=== PATIENT | male | born 1945 | race Caucasian/White ===

== ENCOUNTER → 2017-01-12 | Outpatient (CLI) | payer BC, OTHER ==
[~2017-01-12] MED LIST: ADVIN10/60 INH; ASPI-435 PO; ASTNS NAE; CALC600T9 PO; CINN1CAP2 PO; DOCU-94 PO; FESO8TAB PO; FOLIC ACID PO; GARL400T4 PO; LYSI100010 PO; MULT-506 PO; OMEG10007 PO; OXYC-106 PO; SIMV20TA2 PO
== END | disposition home or self-care (01) ==
LOC: C.LAB 13:02
PROVIDERS: ATTEND Urology
DX: N39.0 Urinary tract infection, site not specified (principal)

== ENCOUNTER → 2017-02-09 | Outpatient (CLI) | payer BC, OTHER ==
[2017-02-09 10:51] LABS: BLOOD UREA NITROGEN 19 mg/dl (7-18); CREATININE 0.99 mg/dl (0.60-1.40)
[2017-02-09 10:55] LABS: PROSTATE SPECIFIC ANTIGEN < 0.010 ng/ml (0.000-4.000)
--- NOTE | 2017-02-16 12:02 | CODING QUERY MEDICAL NECESSITY ---
SUPPORTING DIAGNOSIS NEEDED Dr. Alejandra, A supporting diagnosis is required for the test/procedure performed on this patient in order for us to be reimbursed by the patient's insurance. Please provide a supporting diagnosis for the following test/procedure listed below next to the test name along with your signature. *If there is no additional diagnosis for this patient that would support the following test/procedure please document that below next to the test/procedure. Test(s)/Procedure(s) that require a supporting diagnosis: * [id number] PSA DIAGNOSIS: DATE OF SERVICE: 02/09/17 Provider Signature: Date: Thank you Jung Thornton [facility] Information Management Once completed, please kindly fax back to [phone] For questions please call [phone]
== END | disposition home or self-care (01) ==
LOC: C.LAB 09:27
PROVIDERS: ATTEND Urology
DX: R30.0 Dysuria (principal); N39.3 Stress incontinence (female) (male); C61 Malignant neoplasm of prostate

== ENCOUNTER → 2017-03-24 | Outpatient (CLI) | payer BC, OTHER ==
[2017-03-24 10:33] LABS: BLOOD UREA NITROGEN 20 mg/dl (7-18); BUN/CREATININE RATIO 21.5 (10-20); CREATININE 0.92 mg/dl (0.60-1.40)
== END | disposition home or self-care (01) ==
LOC: C.LAB 08:37
PROVIDERS: ATTEND Urology
DX: R31.9 Hematuria, unspecified (principal)

== ENCOUNTER → 2017-04-05 | Outpatient (CLI) | payer BC, OTHER ==
[~2017-04-05] MED LIST changes: +OPTIRAY 320 IV PRN
--- NOTE | 2017-04-05 11:12 | DIAGNOSTIC IMAGING REPORT ---
ABD/PELVIS COMBO CLINICAL HISTORY: 71 years-old Male presenting with hematuria, history of prostate cancer. TECHNIQUE: Multidetector CT of the abdomen and pelvis was performed before and after the administration of intravenous contrast. IV contrast: 119 mL of Optiray 320. A dose lowering technique was used consistent with the principles of ALARA (as low as reasonably achievable). COMPARISON: 07/09/2014. CT DOSE (mGy.cm): The estimated cumulative dose is 917.32 mGy.cm. FINDINGS: Mycologist topogram: Numerous surgical clips in the pelvis likely relate to prostatectomy. Lung bases: Fat-containing right Bochdalek hernia. Minimal dependent atelectasis. Coronary artery calcification. Normal heart size. No pericardial or pleural effusion. Liver: Normal morphology. No liver lesion. Patent hepatic vasculature. Biliary: No intrahepatic or extrahepatic biliary ductal dilatation. Normal gallbladder. Pancreas: Mild parenchymal atrophy. Spleen: Normal. Adrenal glands: Normal. Kidneys and ureters: No nephrolithiasis. Normal excretion. No hydronephrosis. Normal ureters. Gastrointestinal tract: Sigmoid diverticulosis with apparent mild wall thickening, likely chronic diverticular disease. No pericolonic inflammatory change. Mild stool burden throughout normal caliber colon. Normal appendix. Peritoneal cavity: No free fluid or intraperitoneal gas. Bladder: Suggestion of polypoid thickening of the left posterolateral wall (series 5 image 418), although the bladder is under distended and incompletely evaluated. Pelvic organs: Postsurgical changes of prostatectomy. No abnormal soft tissue at the ureteral anastomosis. Vasculature: Atherosclerosis of the normal caliber abdominal aorta. IVC patent. Lymph nodes: No enlarged lymph nodes in the abdomen or pelvis. Abdominal wall: Diastases of the abdominis rectus. Small fat-containing inguinal hernias. Musculoskeletal: Degenerative changes of the spine. Sclerosis along the left lateral aspect of L2 is stable from prior. No new sclerotic lesion. IMPRESSION: 1. Suggestion of polypoid thickening of the left posterolateral wall of the bladder. The examination is limited by under distention of the bladder. However, this appearance raises concern for bladder wall mass. Further evaluation with CT cystogram versus direct visualization on cystoscopy could be considered. 2. Postsurgical changes of prostatectomy without evidence of residual or recurrent metastatic disease in the abdomen or pelvis. 3. Stable sclerotic lesion in the L2 vertebral body. The report will be called/faxed according to standard departmental protocol. Electronically signed by: Frank Kent M.D. 04/05/2017 11:10 AM Dictated Date/Time: 04/05/2017 11:01 AM
== END | disposition home or self-care (01) ==
LOC: C.CTS 10:31
PROVIDERS: ATTEND Urology
DX: R31.9 Hematuria, unspecified (principal)

== ENCOUNTER → 2017-06-30 | Outpatient (CLI) | payer BC, OTHER ==
[~2017-06-30] MED LIST changes: -OPTIRAY 320 IV PRN
== END | disposition home or self-care (01) ==
LOC: C.LAB 17:11
PROVIDERS: ATTEND Urology
DX: N39.0 Urinary tract infection, site not specified (principal); N52.9 Male erectile dysfunction, unspecified

== ENCOUNTER → 2017-07-23 | Outpatient (CLI) | payer BC, OTHER | END | disposition home or self-care (01) | LOC: C.LAB 12:09 | PROVIDERS: ATTEND Urology | DX: N52.9 Male erectile dysfunction, unspecified (principal); N39.0 Urinary tract infection, site not specified ==

== ENCOUNTER → 2017-09-21 | Outpatient (CLI) | payer BC, OTHER | END | disposition home or self-care (01) | LOC: C.LAB 14:57 | PROVIDERS: ATTEND Nurse Practitioner Adult Health | DX: R30.0 Dysuria (principal) ==

== ENCOUNTER → 2017-10-21 | Outpatient (CLI) | payer BC, OTHER | END | disposition home or self-care (01) | LOC: C.LAB 15:56 | PROVIDERS: ATTEND Nurse Practitioner Adult Health | DX: R31.9 Hematuria, unspecified (principal) ==

== ENCOUNTER → 2018-02-01 | Outpatient (CLI) | payer BC, OTHER | END | disposition home or self-care (01) | LOC: C.RDSM 16:55 | PROVIDERS: ATTEND Physical Medicine & Rehabilitation Sports Medicine | DX: M25.561 Pain in right knee (principal) ==

== ENCOUNTER 2020-03-04 05:39 | Observation (INO) ==
--- NOTE | 2020-02-15 12:07 | PAT Medication Instructions ---
Medication Instructions Date of Service February 15, 2020 Home Medications Medication Instructions Recorded vardenafil 10 mg disintegrating 10 mg PO DAILY PRN #10 tab 04/27/19 tablet sulfamethoxazole 800 1 tab PO BID 10 Days #20 tab 01/25/20 mg-trimethoprim 160 mg tablet vardenafil 10 mg disintegrating tablet 10 mg PO DAILY PRN albuterol sulfate 90 mcg/actuation aerosol inhaler 2 puffs INH Q6H PRN omeprazole 20 mg capsule,delayed release 20 mg PO BID oxybutynin chloride 5 mg tablet 5 mg PO BID tolterodine 2 mg tablet 2 mg PO BID ascorbic acid (vitamin C) [Vitamin C] 500 mg PO QAM atorvastatin 20 mg PO QAM azelastine 1 spray INTRANASAL DAILY calcium citrate 250 mg PO QAM fluticasone propion-salmeterol [Advair HFA] 2 puff INHALATION DAILY folic acid 1 mg PO QAM garlic 1,000 mg PO QAM lysine [L-Lysine] 500 mg PO WK multivitamin 1 tab PO QAM omega 9-okc-uod-fish oil [[place]-3] 1 cap PO QAM vitamin B complex 1 tab PO QAM chlorpheniramine-phenylephrine tans ER 9 mg-25 mg tablet 1 tab PO .Take 1 tablet daily ibuprofen 600 mg tablet 600 mg PO .TAKE TABLET PRN PRN sulfamethoxazole 800 mg-trimethoprim 160 mg tablet 1 tab PO BID 10 Days Continue as directed sulfamethoxazole 800 mg-trimethoprim 160 mg tablet 1 tab PO BID 10 Days ASK your surgeon for instructions ibuprofen 600 mg tablet 600 mg PO .TAKE TABLET PRN PRN STOP taking 2 weeks before surgery (or as soon as possible if surgery is within 2 weeks) garlic 1,000 mg PO QAM lysine [L-Lysine] 500 mg PO WK omega 0-avh-ljh-fish oil [[place]-3] 1 cap PO QAM DO NOT take the morning of surgery vardenafil 10 mg disintegrating tablet 10 mg PO DAILY PRN oxybutynin chloride 5 mg tablet 5 mg PO BID tolterodine 2 mg tablet 2 mg PO BID ascorbic acid (vitamin C) [Vitamin C] 500 mg PO QAM azelastine 1 spray INTRANASAL DAILY calcium citrate 250 mg PO QAM folic acid 1 mg PO QAM multivitamin 1 tab PO QAM vitamin B complex 1 tab PO QAM chlorpheniramine-phenylephrine tans ER 9 mg-25 mg tablet 1 tab PO .Take 1 tablet daily Take morning of surgery With a small sip of water, OTHERWISE NOTHING TO EAT OR DRINK AFTER MIDNIGHT: albuterol sulfate 90 mcg/actuation aerosol inhaler 2 puffs INH Q6H PRN (use if needed; please bring with you to hospital day of surgery if possible) omeprazole 20 mg capsule,delayed release 20 mg PO BID fluticasone propion-salmeterol [Advair HFA] 2 puff INHALATION DAILY Take evening before surgery vardenafil 10 mg disintegrating tablet 10 mg PO DAILY PRN (if needed) albuterol sulfate 90 mcg/actuation aerosol inhaler 2 puffs INH Q6H PRN (if needed) omeprazole 20 mg capsule,delayed release 20 mg PO BID oxybutynin chloride 5 mg tablet 5 mg PO BID tolterodine 2 mg tablet 2 mg PO BID Other Notes If you have any questions please call us at [phone] or [phone] or [phone] or [phone]
--- NOTE | 2020-02-19 14:43 | PAT Medication Instructions ---
Medication Instructions Date of Service February 19, 2020 Home Medications Medication Instructions Recorded vardenafil 10 mg disintegrating 10 mg PO DAILY PRN #10 tab 04/27/19 tablet sulfamethoxazole 800 1 tab PO BID 10 Days #20 tab 01/24/ mg-trimethoprim 160 mg tablet vardenafil 10 mg disintegrating tablet 10 mg PO DAILY PRN albuterol sulfate 90 mcg/actuation aerosol inhaler 2 puffs INH Q6H PRN omeprazole 20 mg capsule,delayed release 20 mg PO BID oxybutynin chloride 5 mg tablet 5 mg PO BID tolterodine 2 mg tablet 2 mg PO BID ascorbic acid (vitamin C) [Vitamin C] 500 mg PO QAM atorvastatin 20 mg PO QAM azelastine 1 spray INTRANASAL DAILY calcium citrate 250 mg PO QAM fluticasone propion-salmeterol [Advair HFA] 2 puff INHALATION DAILY folic acid 1 mg PO QAM garlic 1,000 mg PO QAM lysine [L-Lysine] 500 mg PO WK multivitamin 1 tab PO QAM omega 6-pwq-riq-fish oil [[place]-3] 1 cap PO QAM vitamin B complex 1 tab PO QAM chlorpheniramine-phenylephrine tans ER 9 mg-25 mg tablet 1 tab PO .Take 1 tablet daily ibuprofen 600 mg tablet 600 mg PO .TAKE TABLET PRN sulfamethoxazole 800 mg-trimethoprim 160 mg tablet 1 tab PO BID Continue as directed sulfamethoxazole 800 mg-trimethoprim 160 mg tablet 1 tab PO BID ASK your surgeon for instructions ibuprofen 600 mg tablet 600 mg PO .TAKE TABLET PRN STOP taking 2 weeks before surgery omega 1-hwj-oxd-fish oil [[place]-3] 1 cap PO QAM garlic 1,000 mg PO QAM lysine [L-Lysine] 500 mg PO WK STOP taking 24 hours before surgery vardenafil 10 mg disintegrating tablet 10 mg PO DAILY PRN DO NOT take the morning of surgery vitamin B complex 1 tab PO QAM chlorpheniramine-phenylephrine tans ER 9 mg-25 mg tablet 1 tab PO .Take 1 tablet daily multivitamin 1 tab PO QAM calcium citrate 250 mg PO QAM folic acid 1 mg PO QAM ascorbic acid (vitamin C) [Vitamin C] 500 mg PO QAM oxybutynin chloride 5 mg tablet 5 mg PO BID tolterodine 2 mg tablet 2 mg PO BID Take morning of surgery With a small sip of water, OTHERWISE NOTHING TO EAT OR DRINK AFTER MIDNIGHT: fluticasone propion-salmeterol [Advair HFA] 2 puff INHALATION DAILY atorvastatin 20 mg PO QAM azelastine 1 spray INTRANASAL DAILY albuterol sulfate 90 mcg/actuation aerosol inhaler 2 puffs INH Q6H PRN (use if needed; please bring with you to hospital day of surgery if possible) omeprazole 20 mg capsule,delayed release 20 mg PO BID Take evening before surgery oxybutynin chloride 5 mg tablet 5 mg PO BID tolterodine 2 mg tablet 2 mg PO BID albuterol sulfate 90 mcg/actuation aerosol inhaler 2 puffs INH Q6H PRN (if needed) omeprazole 20 mg capsule,delayed release 20 mg PO BID Other Notes If you have any questions please call us at [phone] or [phone] or [phone] or [phone]
--- NOTE | 2020-02-20 09:30 | Anesthesiology Consultation ---
Date of Service February 20, 2020 Assessment & Plan (1) Encounter for pre-operative examination: Chart Review Chart Review: Acceptable Risk for Surgery (COVID TESTING THREE DAYS PRIOR TO SURGERY ) and Patient seen in Pre Admission Testing Per PAT appt 02/20/20- patient states surgeon office would be contacting him about Covid testing three days prior to surgery. Educated patient on importance of quarantine and social distancing both for himself and household members Teaching & Discussion Pre-Anesthesia Teaching/Discussion Notes: Instructed NPO after midnight before surgery,except medications with 15 cc of water. Medication instructions provided according to the PAT guidelines. History Surgery Operation Date: 03/04/20 09:50 Proposed Procedures p Right Knee Arthroplasty Uni Compartment versus - Hal Weiss MD s Right Total Knee Arthroplasty - Hal Weiss MD Height/Weight Height: 5 ft 8 in Weight: 85.2 kg Allergies Allergy/AdvReac Type Severity Reaction Status Date / Time grass pollen-perennial rye, Allergy Mild ITCHY EYES Verified 02/14/20 12:43 standar STUFFY NOSE pollen extracts Allergy Mild ITCHY Verified 02/14/20 12:43 EYES,STUFFY NOSE No Known Drug Allergies Allergy Unknown NONE Verified 02/14/20 12:43 cat dander Allergy Verified 02/14/20 12:43 dog dander Allergy Verified 02/14/20 12:43 Medications Home Medications Medication Instructions Recorded Confirmed Last Taken vardenafil 10 mg disintegrating 10 mg PO DAILY PRN #10 tab 04/27/19 02/14/20 Unknown tablet albuterol sulfate 90 mcg/actuation 2 puffs INH Q6H PRN 09/21/19 02/14/20 Unknown aerosol inhaler omeprazole 20 mg capsule,delayed 20 mg PO BID 09/21/19 02/14/20 Unknown release oxybutynin chloride 5 mg tablet 5 mg PO BID 09/21/19 02/14/20 Unknown tolterodine 2 mg tablet 2 mg PO BID 09/21/19 02/14/20 Unknown ascorbic acid (vitamin C) [Vitamin 500 mg PO QAM 12/06/19 02/14/20 Unknown C] atorvastatin 20 mg PO QAM 12/06/19 02/14/20 Unknown azelastine 1 spray INTRANASAL DAILY 12/06/19 02/14/20 Unknown calcium citrate 250 mg PO QAM 12/06/19 02/14/20 Unknown fluticasone propion-salmeterol 2 puff INHALATION DAILY 12/06/19 02/14/20 Unknown [Advair HFA] folic acid 1 mg PO QAM 12/06/19 02/14/20 Unknown garlic 1,000 mg PO QAM 12/06/19 02/14/20 Unknown lysine [L-Lysine] 500 mg PO WK 12/06/19 02/14/20 Unknown multivitamin 1 tab PO QAM 12/06/19 02/14/20 Unknown omega 9-eug-kae-fish oil [[place]-3] 1 cap PO QAM 12/06/19 02/14/20 Unknown vitamin B complex 1 tab PO QAM 12/06/19 02/14/20 Unknown chlorpheniramine-phenylephrine 1 tab PO .Take 1 tablet daily 01/01/20 02/14/20 Unknown tans ER 9 mg-25 mg tablet ibuprofen 600 mg tablet 600 mg PO .TAKE TABLET PRN PRN 01/01/20 02/14/20 Unknown Past Medical History Medical History (Updated 02/20/20 @ 15:56 by Renetta Villela PA-C) Asthma HAS NOT USED RESCUE INHALER FOR A WHILE Deep vein thrombosis 2002 (S/P KNEE SURGERY)- ON BLOOD THINNERS X SIX MONTHS THEN D/CONCEPCIÓN -NO ISSUES SINCE Degenerative disc disease GERD (gastroesophageal reflux disease) WELL CONTROLED AND STABLE History of high cholesterol History of prostate cancer S/P PROSTATECTOMY Osteoarthritis Sleep apnea CPAP DEVICE- NON COMPLIANT X ONE YEAR SECONDARY TO 'S HEALTH ISSUES Exercise / Class Metabolic Activity II 4-5 Yardwork/Stairs/Walk up hill (ONE FLIGHT OF STAIRS- NO CHEST PAIN OR SOB) Past Family History Family History Other No significant medical problems Past Surgical History Surgical History History of anesthesia reaction DIFFICULTY BREATHING AFTER KNEE SURGERY (NOTHING WITH DIFFICULT AIRWAY)- NO REINTUBATION OR ICU STAY- NO ISSUES WITH OTHER SURGERIES History of arthroscopy LEFT/RT KNEE History of back surgery LUMBAR LAMINECTOMY (3 TOTAL SURGERIES) History of carpal tunnel release History of cataract surgery RT/LEFT History of colonoscopy History of tonsillectomy and adenoidectomy Hx of transurethral resection of prostate Hx of vasectomy Trigger finger X 6 Dobson teeth removed Past Anesthesia History No Hx of Anesthesia Complications (ONE EPISODE OF SOB POST OP- RESOLVED- NO OTHER ISSUES ) and No Family Hx of Anesthesia Complications History of PONV No Hx of PONV and No Hx of Motion Sickness Social History Smoking Status: Former smoker tobacco type: cigarettes Do You Dip or Chew Tobacco: No Smoking End Date: 1980 Hx Alcohol Use: Yes Alcohol type: beer alcohol intake frequency: a few times a month Hx Substance Use: No substance use type: does not use Review of Systems Did have blood transfusion s/p prostate surgery with own blood Patient denies chest pain, shortness of breath, dyspnea on exertion, cough, wheezing, palpitations. No hx of seizures, stroke, HI. Physical Exam Vital Signs VITALS BP 118/69 P 50 (denies dizziness or syncope) TEMP 98.0 SP02 95% RESP 16 Constitutional no acute distress ENMT Mouth: no TMJ clicking Thyromental Distance: > or= 3.5 Finger Breadths (4.0) Mallampati Class: III Permanent upper frontal bridge Missing molars Capped/crowned molars Neck neck extension not limited Respiratory normal respiratory effort; no respiratory distress Auscultation: lungs clear to auscultation bilaterally; no wheezes Cardiovascular Rate/Rhythm: regular rate and regular rhythm Heart Sounds: no murmur Vessels: no carotid bruit Heart sounds diminished throughout Musculoskeletal Spine: + pain with cervical ROM (mild and moderate ) Neurologic moves all extremities Psychiatric Orientation: alert Testing Laboratory Results 02/20/20 09:42 02/20/20 09:42 PT 10.5 Seconds (9.0-12.0) 02/20/20 09:42 INR 1.0 (0.9-1.1) 02/20/20 09:42 APTT 26.3 Seconds (21.0-31.0) 02/20/20 09:42 Blood Type A Positive 02/20/20 09:42 Antibody Screen NEGATIVE 02/20/20 09:42 Electrocardiogram Date: 02/20/20 SB with 1st degree AVB at 47 bpm- when compared to Jun 13, 2015 EKG per cardio- no sig change was found. Chest X-Ray Date: 02/20/20 Findings: + NAD
--- NOTE | 2020-02-20 10:07 | XRay Report ---
XR chest Pre-admission PA/Lat HISTORY: 74 years-old Male PAT preoperative exam. No acute chest complaints COMPARISON: Chest radiographs 09/21/2018 TECHNIQUE: PA and lateral views of the chest FINDINGS: Cardiomediastinal and hilar silhouettes are within normal limits. No pneumothorax, pleural effusion, airspace consolidation or overt pulmonary edema. Bones of the chest appear grossly intact. IMPRESSION: No acute process. ACT 112: Negative or not required by law. The above report was generated using voice recognition software. It may contain grammatical, syntax o r spelling errors. Electronically signed by: Jason Francois M.D. 02/20/2020 10:05 AM
[2020-02-20 10:38] LABS: Basophils # (auto) 0.03 K/uL (0-0.2); Basophils % (auto) 0.5 %; Eosinophils # (auto) 0.09 K/uL (0-0.5); Eosinophils % (auto) 1.6 %; Hemoglobin 14.6 g/dL (14.0-18.0); Immature Granulocytes # (auto) 0.01 K/uL (0.00-0.02); Immature Granulocytes % (auto) 0.2 %; Lymphocytes # (auto) 2.19 K/uL (1.2-3.4); Lymphocytes % (auto) 38.6 %; Mean Corpuscular Hemoglobin 31.9 pg (25-34); Mean Corpuscular Hgb Conc 33.2 g/dL (32-36); Mean Corpuscular Volume 96.1 fL (80-100); Mean Platelet Volume 10.4 fL (7.4-10.4); Monocytes # (auto) 0.63 K/uL (0.11-0.59); Monocytes % (auto) 11.1 %; Neutrophils # (auto) 2.72 K/uL (1.4-6.5); Platelet Count 188 K/uL (130-400); RDW Coefficient of Variation 13.8 % (11.5-14.5); RDW Standard Deviation 48.8 fL (36.4-46.3); Red Blood Count 4.58 M/uL (4.7-6.1); White Blood Count 5.67 K/uL (4.8-10.8)
[2020-02-20 10:47] LABS: BUN Creatinine Ratio 21.4 (10-20); Calcium 8.5 mg/dl (8.5-10.1); Creatinine Clr Calc Pharmacy 74.5 ml/min; Est GFR (African American) 95.2; Est GFR (Non-African American) 82.2
[2020-02-20 10:52] LABS: Partial Thromboplastin Ratio 0.9; Partial Thromboplastin Time 26.3 Seconds (21.0-31.0); Prothrombin Time 10.5 Seconds (9.0-12.0)
--- NOTE | 2020-02-20 16:59 | Electrocardiogram Report ---
Test Reason : Blood Pressure : / mmHG Vent. Rate : 047 BPM Atrial Rate : 047 BPM P-R Int : 234 ms QRS Dur : 082 ms QT Int : 436 ms P-R-T Axes : 038 037 018 degrees QTc Int : 385 ms Sinus bradycardia with 1st degree A-V block Otherwise normal ECG When compared with ECG of 13-JUN-2015 11:42, No significant change was found Confirmed by Robb Stubbs ([id number]) on 02/20/2020 4:59:13 PM Referred By: Hal Weiss Confirmed By:Robb Stubbs
--- NOTE | 2020-03-02 10:39 | History and Physical Report ---
DATE OF ADMISSION: 03/04/2020 CHIEF COMPLAINT: Persistent right medial knee pain, discomfort and swelling. HISTORY OF PRESENT ILLNESS: The patient is a 74-year-old gentleman who presents for repeat evaluation and treatment of his right knee. He has had a several year history of gradually increasing right knee pain and discomfort. He did have a history of a right knee arthroscopy done by Dr. Smith in the . It helped him for quite a while. He has been through extensive conservative treatment over the years by both Dr. Smith as well as myself. He has had steroid shots provided very minimal relief. Pain is localized mostly on the medial side of his knee. The more he walks, the more it hurts. It is affecting his quality of life. He would like to have his knee fixed if possible. Of note, the patient has a history of left knee ACL reconstruction which was done pretty well and relatively asymptomatic. PAST MEDICAL HISTORY: Past medical history significant for: 1. Asthma. 2. Sleep apnea with CPAP machine. 3. History of a DVT in the past with no known clotting disorder and no PE. 4. Gastroesophageal reflux disease. 5. Low back pain/sciatica. PAST SURGICAL HISTORY: Previous surgeries include: 1. Right knee arthroscopy done in the . 2. Left ACL reconstruction. 3. Prostate cancer surgery. 4. Back surgery x3. 5. Trigger fingers. ALLERGIES: TO PET HAIR AND POLLEN. No known drug allergies. CURRENT MEDICINES: Include: 1. Advair once a day. 2. Aspirin once a day. 3. Proventil inhaler as needed. 4. Atorvastatin 20 mg. 5. Oxybutynin 5 mg twice a day. 6. Tolterodine 2 mg twice a day. 7. Omeprazole 20 mg twice a day. 8. Nitrofurantoin as needed. 9. Ketoconazole cream. 10. Multivitamin. 11. Calcium. 12. Fish oil. 13. Garlic. 14. Vitamin D. SOCIAL HISTORY: male. He is 74. He is fairly active. Does not smoke. No significant alcohol intake. FAMILY HISTORY: Noncontributory. REVIEW OF SYSTEMS: Significant for DVT in the past. No history of PEs. No known clotting disorders. No chest pain or shortness of breath. No history of bleeding problems. PHYSICAL EXAMINATION: GENERAL: Reveals a healthy, pleasant, middle-aged male. Looks to be in good health. HEENT: Benign. NECK: Supple, no lymphadenopathy. LUNGS: Clear to auscultation. HEART: Has a regular rate and rhythm. ABDOMEN: Soft, nontender, nondistended. EXTREMITIES: Grossly neurovascularly intact except as follows. Examination of the right knee reveals the patient walks with a slight bit of a limp on his side. He has got varus alignment to his knee. Small to moderate size knee effusion. Range of motion is 0-125. He has no instability. ACL appears intact. No pain with hip motion. X-RAYS: X-rays of the right knee reviewed. It shows moderate medial compartment arthritis. He has got narrowing but not complete loss of his medial joint space. The rest of his knee looks pretty good. With stress film testing, his medial compartment opens up and lateral side is pretty well preserved. ASSESSMENT: A 74-year-old male with a history of right knee arthroscopy in the past with right knee medial compartment degenerative joint disease. He has been through extensive conservative treatment and still a bit debilitated by this. His symptoms mostly localized to the medial side of his knee. PLAN: We talked about treatment options including further conservative versus operative management. He is really wanting it fixed. We are going to proceed with a right partial knee replacement. If we get in there, it is too bad, we will do a full knee replacement. The risks and benefits of right partial versus total knee replacement were explained to the patient including but not limited to DVT, PE, , infection, neurological injury, vascular injury, bleeding problem, pain, limited range of motion, stiffness, failure to relieve symptoms, incomplete relief of symptoms, need for further surgery in future, fracture, leg length inequality, nerve palsy, etc. The patient understands and desires to proceed. Informed consent was obtained. He does have this history of a DVT in the past, but no PE. We will use Xarelto for 1 month postoperatively. We did talk about bringing his CPAP machine to the hospital.
[2020-03-04] MEDS ORDERED: CEFAZOLIN 2000MG 2,000 MG/15 ML SYR IV SCH (06:00)
[2020-03-04] MEDS ORDERED: ACETAMINOPHEN 500 MG TAB PO SCH (06:00)
[2020-03-04] MEDS ORDERED: LR 60ML/HR IV SCH (06:00)
[2020-03-04] MEDS ORDERED: BUPIVACAINE LIPOSOME/PF 266 MG, BUPIVACAINE/EPINEPHRINE 50 ML, SODIUM CHLORIDE 0.9% 30 ... INFIL SCH (06:00)
[2020-03-04] MEDS ORDERED: LR 500ML BOLUS, THEN 15ML/HR IV SCH (06:00)
[2020-03-04] MEDS ORDERED: METOCLOPRAMIDE HCL 10 MG TABLET PO SCH (06:00)
[2020-03-04] MEDS ORDERED: FAMOTIDINE 20 MG TAB PO SCH (06:00)
[2020-03-04] MEDS ORDERED: GABAPENTIN 300 MG CAP PO SCH (06:00)
[2020-03-04] MEDS ORDERED: BUPIVACAINE 0.5 % 5 MG/1 ML PF 10ML VIAL ONE (06:24)
[2020-03-04] MEDS ORDERED: BUPIVACAINE/EPINEPHRINE 0.25% 1:200,000 30 ML VIAL ONE (06:35)
[2020-03-04] MEDS ORDERED: SODIUM CHLORIDE 0.9% PF 50 ML VIAL ONE (06:35)
[2020-03-04] MEDS ORDERED: BACITRACIN INJ 50,000 UNIT VIAL ONE (06:35)
[2020-03-04] MEDS ORDERED: BUPIVACAINE LIPOSOME 1.3% 266 MG/20 ML VIAL ONE (06:35)
[2020-03-04] MEDS ORDERED: ONDANSETRON INJ 2 MG/ML 2 ML VIAL IV PRN ×2 (06:36→10:06)
[2020-03-04] MEDS ORDERED: ePHEDrine sulfate 50 MG/ML AMP IV PRN (06:36)
[2020-03-04] MEDS ORDERED: ATROPINE SULFATE 0.1 MG/ML 10ML SYR IV PRN (06:36)
[2020-03-04] MEDS ORDERED: fentaNYL citrate 100 MCG/2 ML VIAL IV PRN (06:36)
[2020-03-04] MEDS ORDERED: MIDAZOLAM HCL 1 MG/ML 2ML VIAL ONE (06:39)
[2020-03-04] MEDS ORDERED: fentaNYL citrate 100 MCG/2 ML VIAL ONE (06:39)
--- NOTE | 2020-03-04 06:52 | History & Physical Bridge Note ---
Date of Service March 04, 2020 History & Physical Bridge Note I have examined the patient, reviewed the History & Physical and in the interval since the performance of the History & Physical I have noted the following changes of clinical significance: no changes noted
[2020-03-04] MEDS ORDERED: PROPOFOL IV EMULSION 10 MG/ML 20 ML VIAL IV ONE (07:31)
--- NOTE | 2020-03-04 08:50 | Post Operative Brief Note ---
PG Immediate Post Op with CF Date of Surgery March 04, 2020 Pre & Post Diagnosis Operation Date: 03/04/20 07:00 Pre-Op Diagnosis: Right Knee Medial Compartment Degenerative Joint Disease Post-Op Diagnosis: Right Knee Medial Compartment Degenerative Joint Disease I identified the patient and participated in the time-out.: Yes Procedure Operation Date: 03/04/20 07:00 Actual Procedures p Right Knee Unicompartmental Arthroplasty(Right) - Hal Weiss MD Surgeon Hal Weiss MD [employer] [facility], [facility] Estimated Blood Loss 25 Findings Consistent with Post-Op Diagnosis Fluids 500 cc Specimens Specimen Description: A. Right Knee Bone and Tissue Drains Emanuel Catheter Anesthesia Type Spinal MAC Complications none Disposition Accompanied Patient To Recovery: Yes Disposition: Recovery Room
--- NOTE | 2020-03-04 09:10 | Operative Report ---
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 He did not have much eburnation just full-thickness cartilage loss. Some small osteophytes medially. His ACL was intact. The lateral compartment was well preserved. He did have some grade 2 changes the medial trochlea. The patella looked pretty well-preserved. Fluids 500 cc. Specimens Right knee sent for pathology. Drains None. Anesthesia Type Spinal MAC Complications none Disposition Accompanied Patient To Recovery: Yes Disposition: Recovery Room Indications Patient is a 74-year-old very active gentleman is had a long history of right knee problems. He had his right knee scoped back in the 90s which provided him with some temporary relief. Over the past 5 years he is developed increased pain discomfort in his right knee. The symptoms localized to the medial side of his knee. He failed extensive conservative treatment. X-rays revealed moderate medial compartment DJD. He elected proceed with surgical treatment. Description of Procedure Operative implants consist of: 1. Biomet Yuba size medium femoral component. 2. Biomet [place] right medial size C tibial tray. 3. 4 mm mobile-bearing insert. Patient taken to the operating identified and placed on the operating table stephen pine position protectors were properly padded. IV antibiotics arrived by anesthesia team. A spinal anesthetic had been implemented in the holding area. A right thigh turn was then placed. A Emanuel catheter was placed in sterile fashion. The right lower extremities and prepped and draped in usual sterile fashion. The right leg was elevated exsanguinated with use of an Esmarch and turns placed at 300 mmHg. An anterior approach of the right knee was then performed to longitudinal incision over the medial border of the patella tendon. It extended from the superior pole the patella to just medial to the tibial tubercle. Sharp dissection was cut through subcutaneous tissue down to the extensor mechanism. The subcutaneous tissue was then mobilized circumferentially. A medial parapatellar arthrotomy incision was made. Some slight subperiosteal dissection was carried out medially taking great care to protect the MCL. I examined the lateral compartment and it was well preserved. He did have some mild grade 2 trochlear changes but. We elected proceed with a partial knee replacement considering he appeared asymptomatic from the patellofemoral joint. Some osteophytes were taken off the intercondylar notch area. The femur was sized to a medium. The medium spoon was placed. The external tibial alignment jig was then placed in the interface the tibia and attached to the medium spoon with a 4G clamp. The proximal tibial guide was then pinned with a pin and then the proximal tibial cut was made. The tibia was sized to a size C. Attention drawn the femur. The distal femur stem with a sharp drill. Intramedullary guide guide was placed. A medium femoral template set at 4 was then placed and attached to the IM guide. The holes were drilled for the femoral component. The posterior cutting guide was placed in the posterior cut was made. The knee was flexed. The remnants of the medial meniscus were excised. I then used a 0 spigot milled the distal femur. I then trialed the knee and the 4 feeler gauge fit appropriately in flexion and the one in extension. We then used a 3 spigot to mill the distal femur. We then trialed the knee again and the 4 feeler gauge fit appropriately in flexion and extension. The posterior osteophyte cutting guide was placed and the posterior osteophyte was removed. The milling device was used to create the defect in the proximal femur for the femoral component. The cement drill was then used to drill some holes in the femoral condyle for cement interdigitation. The size C tibial tray was then pinned in place and the toothbrush saw was used to create the defect for the keel for the tibial tray. Then irrigated the wound extensively. I then trialed the knee with the final trial implants and the 4 feeler gauge fit appropriately in flexion extension along with the for trial. We elect to place these implants. All trial implants were removed. I irrigated the wound extensively. A single batch [place] G cement was mixed. A Biomet Yuba medial size C tibial tray was cemented in place. A medium femoral component was cemented in place. A 4 feeler gauge was placed the knee was brought out into about 30 degrees short full extension until cement hardened. Final cement check was then performed. I then placed a 4 implant and it fit nicely and tracked appropriately. We irrigated the wound extensively. I injected locally with 100 cc of combination of 20 cc of Exparel, 30 cc normal saline, and 50 cc of half percent Marcaine with epinephrine. The tourniquet was then let down for tourniquet time 53 minutes. Hemostasis assured with electrocautery. Irrigated the wound again. The extensor neck was then closed with #1 Vicryl suture in [id number] fashion to the extensor mechanism was checked and found to be intact and subcutaneous tissue then closed with 2 Dexon suture in buried interrupted fashion skin was closed with skin donna. Leg was then cleaned dried a sterile dressing composed Xeroform, 4 x 4's, sterile cast padding Charles bandage were applied. Patient then transferred to the recovery room in stable condition. Patient tolerated procedure well no complications. I attest to the content of the Intraoperative Record and any orders documented therein. Any exceptions are noted below.
--- NOTE | 2020-03-04 09:29 | XRay Report ---
XR knee RT 1 or 2V routine CLINICAL HISTORY: Surgical Post Op COMPARISON: 02/01/2018 DISCUSSION: There are postsurgical changes of a medial joint compartment arthroplasty. There is gas p resent within the soft tissues consistent with surgery. There are overlying skin donna. IMPRESSION: Postsurgical changes of a medial joint compartment arthroplasty. ACT 112: Negative or not required by law. Electronically signed by: Carlos Padron M.D. 03/04/2020 9:27 AM
--- NOTE | 2020-03-04 09:53 | Anesthesiology Progress Note ---
Date of Service March 04, 2020 Anesthesia Post Procedure Vital Signs Vital Signs: Temp Pulse Resp BP Pulse Ox 03/04/20 09:40 66 14 125/69 94 03/04/20 09:30 97.9 F 63 15 130/73 95 03/04/20 09:20 68 19 124/62 96 03/04/20 09:10 69 21 118/72 95 03/04/20 09:00 66 16 129/80 95 03/04/20 08:53 97.9 F 71 22 116/69 95 03/04/20 06:10 99.1 F 69 141/81 H 20 L Transfer of Care Handoff Completed per policy Notes Mental Status: alert / awake / arousable and participated in evaluation Patient Amnestic to Procedure: Yes Nausea / Vomiting: adequately controlled Pain: adequately controlled Airway Patency, RR, SpO2: stable & adequate BP & HR: stable & adequate Hydration State: stable & adequate Neuraxial Anesthesia: was administered and sensory block is resolving Anesthetic Complications: no major complications apparent and Pt Satisfied with anesthetic care
[2020-03-04] MEDS ORDERED: TAMSULOSIN HCL 0.4 MG CAP PO PRN (10:06)
[2020-03-04] MEDS ORDERED: NALOXONE HCL 0.4 MG/1 ML VIAL/CARP IV PRN (10:06)
[2020-03-04] MEDS ORDERED: NON-FORMULARY MEDICATION (Garlic 1,000 MG) PO SCH (10:06)
[2020-03-04] MEDS ORDERED: SODIUM CHLORIDE 0.9% 1000ML 1,000 ML IV SCH (10:06)
[2020-03-04] MEDS ORDERED: MAGNESIUM HYDROXIDE SUSP 30 ML UDC PO PRN (10:06)
[2020-03-04] MEDS ORDERED: bisacodyL 10 MG SUPP PR PRN (10:06)
[2020-03-04] MEDS ORDERED: ALUMINUM/MAGNESIUM SUSP 30 ML UDC PO PRN (10:06)
[2020-03-04] MEDS ORDERED: MULTIVITAMIN TAB PO SCH (10:06)
[2020-03-04] MEDS ORDERED: VARDENAFIL PO PRN (10:06)
[2020-03-04] MEDS ORDERED: ALBUTEROL HFA 8 GM INHALER INH PRN (10:06)
[2020-03-04] MEDS ORDERED: NON-FORMULARY MEDICATION (Lysine [L-Lysine] 500 MG) PO SCH (10:06)
[2020-03-04] MEDS ORDERED: METOCLOPRAMIDE HCL INJ 5 MG/ML 2 ML VIAL IV PRN (10:06)
[2020-03-04] MEDS: MULTIVITAMIN TAB PO SCH (12:17)
[2020-03-04] MEDS: KETOROLAC TROMETHAMINE 15 MG/ML VIAL IV SCH ×2 (12:17→17:53)
[2020-03-04] MEDS: TOLTERODINE TARTRATE 2 MG TAB PO SCH ×2 (12:17→21:18)
[2020-03-04] MEDS: DOCUSATE SODIUM 100 MG CAP PO SCH ×2 (12:17→21:18)
[2020-03-04] MEDS: FOLIC ACID 1 MG TAB PO SCH (12:17)
[2020-03-04] MEDS: OMEGA-3 (PURIFIED FISH OIL) 1 GM CAP PO SCH (12:17)
[2020-03-04] MEDS: PANTOprazole 40 MG TAB PO SCH ×2 (12:18→21:18)
[2020-03-04] MEDS: VITAMIN B COMPLEX TAB PO SCH (12:18)
[2020-03-04] MEDS: CALCIUM CITRATE 950 MG TAB PO SCH (12:18)
[2020-03-04] MEDS: TRAMADOL HCL 50 MG TABLET PO PRN (13:51)
[2020-03-04] MEDS: ACETAMINOPHEN 500 MG TAB PO SCH ×2 (13:51→21:18)
[2020-03-04] MEDS: ASTELIN - ORDER AWAITING ACTION SCH (15:04)
[2020-03-04] MEDS: HYDROmorphone INJ 0.5 MG/0.5 ML SYR IV PRN ×2 (15:10→22:23)
[2020-03-04] MEDS: ATORVASTATIN 20 MG TAB PO SCH (15:10)
[2020-03-04] MEDS: ASCORBIC ACID 500 MG TAB PO SCH (15:10)
[2020-03-04] MEDS: CEFAZOLIN 2000MG 2,000 MG/15 ML SYR IV SCH (15:10)
--- NOTE | 2020-03-04 15:15 | Progress Notes ---
DATE: 03/04/2020 SUBJECTIVE: A 74-year-old gentleman postop from a right partial knee replacement. He is doing well. Having a little bit of pain. No chest pain or shortness of breath. Not feeling dizzy or lightheaded. OBJECTIVE: VITAL SIGNS: Temperature 36.5. Vital signs stable. GENERAL: Physical examination shows a pleasant elderly male. He is sitting up in bed, watching TV, looks comfortable. LUNGS: Clear to auscultation. HEART: Has a regular rate and rhythm. ABDOMEN: Soft, nontender, nondistended. EXTREMITIES: Grossly neurovascularly intact except as follows. Examination of the right leg reveals the leg to be well aligned. Dressing is clean, dry and intact. He can dorsiflex and plantarflex his foot appropriately. He is neurologically intact. X-RAYS: X-rays of the right knee from Recovery Room reviewed. It shows a right partial knee replacement. Components looked to be in good position. No signs of problems. Slightly rotated film. ASSESSMENT: A 74-year-old gentleman postop from a right partial knee replacement, doing well. His pain is controlled. He is neurologically intact. PLAN: 1. DVT prophylaxis include thigh-high TEDs, SCDs. We are going to use Xarelto for 30 days postop, beginning 24 hours postop due to his history of a DVT in the past. 2. PT/OT, weight bear as tolerated. Right total knee protocol. 3. Pain control, doing pretty well with current pain regimen. 4. IV antibiotics x24 hours. 5. Disposition: Plan to discharge to home with some home health once adequately recovered and medically stable.
[2020-03-04] MEDS ORDERED: SENNA 8.6 MG TAB PO SCH (21:00)
[2020-03-05] MEDS: KETOROLAC TROMETHAMINE 15 MG/ML VIAL IV SCH ×3 (00:03→11:23)
[2020-03-05] MEDS: CEFAZOLIN 2000MG 2,000 MG/15 ML SYR IV SCH (00:04)
[2020-03-05] MEDS: ASTELIN - ORDER AWAITING ACTION SCH ×2 (00:04→08:50)
[2020-03-05] MEDS: ACETAMINOPHEN 500 MG TAB PO SCH ×2 (06:21→13:38)
[2020-03-05] MEDS: TRAMADOL HCL 50 MG TABLET PO PRN ×2 (07:36→13:39)
--- NOTE | 2020-03-05 08:24 | Anesthesiology Progress Note ---
Date of Service March 05, 2020 Anesthesia Post Procedure Vital Signs Vital Signs: Temp Pulse Resp BP BP Pulse Ox 03/05/20 07:43 36.5 C 69 16 156/86 H 93 03/05/20 02:41 37.0 C 69 16 126/75 93 03/04/20 23:44 37.4 C 69 15 138/87 90 03/04/20 20:07 36.5 C 57 L 17 165/90 H 95 03/04/20 15:08 36.8 C 61 17 152/77 H 95 03/04/20 13:00 51 L 16 148/90 H 99 03/04/20 11:53 61 16 130/73 98 03/04/20 11:05 60 16 130/79 95 03/04/20 10:38 36.5 C 60 15 131/84 98 03/04/20 10:09 36.4 C L 63 16 136/75 96 03/04/20 09:40 66 14 125/69 94 03/04/20 09:30 36.6 C 63 15 130/73 95 03/04/20 09:20 68 19 124/62 96 03/04/20 09:10 69 21 118/72 95 03/04/20 09:00 66 16 129/80 95 03/04/20 08:53 36.6 C 71 22 116/69 95 Pain Intensity Right Knee: Pain Intensity: 7 Notes Mental Status: alert / awake / arousable and participated in evaluation Patient Amnestic to Procedure: Yes Nausea / Vomiting: adequately controlled Pain: adequately controlled Airway Patency, RR, SpO2: stable & adequate BP & HR: stable & adequate Hydration State: stable & adequate Neuraxial Anesthesia: was administered and sensory block resolved Anesthetic Complications: no major complications apparent and Pt Satisfied with anesthetic care
[2020-03-05] MEDS: ASCORBIC ACID 500 MG TAB PO SCH (08:47)
[2020-03-05] MEDS: ATORVASTATIN 20 MG TAB PO SCH (08:50)
[2020-03-05] MEDS: VITAMIN B COMPLEX TAB PO SCH (08:50)
[2020-03-05] MEDS: PANTOprazole 40 MG TAB PO SCH (08:50)
[2020-03-05] MEDS: MULTIVITAMIN TAB PO SCH (08:50)
[2020-03-05] MEDS: TOLTERODINE TARTRATE 2 MG TAB PO SCH (08:50)
[2020-03-05] MEDS: DOCUSATE SODIUM 100 MG CAP PO SCH (08:50)
[2020-03-05] MEDS: FOLIC ACID 1 MG TAB PO SCH (08:50)
[2020-03-05] MEDS ORDERED: RIVAROXABAN 10 MG TABLET PO SCH (09:00)
[2020-03-05] MEDS ORDERED: FLUTICASONE/VILANTEROL 200/25MCG 14 PUFFS/INHALER INH SCH (09:00)
[2020-03-05] MEDS ORDERED: Nursing to Pharmacy Communication SCH (09:45)
[2020-03-05] MEDS: OMEGA-3 (PURIFIED FISH OIL) 1 GM CAP PO SCH (10:00)
[2020-03-05] MEDS: CALCIUM CITRATE 950 MG TAB PO SCH (10:00)
--- NOTE | 2020-03-05 13:18 | Progress Notes ---
DATE: 03/05/2020 SUBJECTIVE: A 74-year-old gentleman postop day 1 from a right partial knee replacement. He is doing pretty well. He is having some pain but controlled with meds. No chest pain or shortness of breath. Therapy went pretty well this morning. Not feeling dizzy or lightheaded. OBJECTIVE: VITAL SIGNS: Temperature 36.5. Vital signs stable. GENERAL: Shows a pleasant elderly male. He is sitting up in bed and looks pretty comfortable. EXTREMITIES: Examination of the right leg reveals the leg to be well aligned. Dressing is clean, dry, and intact. He can dorsiflex and plantarflex his foot appropriately. He is neurologically intact. ASSESSMENT: A 74-year-old gentleman postoperative day 1 from right partial knee replacement, doing well. Pain is controlled. He is neurologically intact. PLAN: 1. DVT prophylaxis including thigh-high TEDs, SCDs, and we are going to use Xarelto for 1 month as he has a history of a DVT in the past. 2. PT/OT. Weight bear as tolerated. Right total knee protocol. 3. Pain control, doing well with current pain regimen. 4. Disposition: Plan to discharge to home with some home health likely later today if he does okay in therapy.
[2020-03-05] MEDS ORDERED: CALCIUM CITRATE 950 MG TAB PO SCH (21:00)
[2020-03-05] MEDS ORDERED: OMEGA-3 (PURIFIED FISH OIL) 1 GM CAP PO SCH (21:00)
--- NOTE | 2020-03-08 16:08 | Discharge Summary ---
Date of Service March 08, 2020 Admission HPI Per Admitting Provider Documented in the H&P Admission Exam (Per Admitting) Constitutional Documented in the H&P Discharge Data Consultations 03/04/20 10:06 Consult Case Management - Discharge Planning Routine Procedures Performed Operation Date: 03/04/20 07:00 Actual Procedures p Right Knee Unicompartmental Arthroplasty(Right) - Hal Weiss MD Hospital Course (1) Right knee DJD: 74-year-old male admitted on 03/04/2020 underwent partial knee replacement. He tolerated procedure well and there were no complications. He is transferred to the PACU postoperatively later to the orthopedic for further care. He was given Ancef for antibiotic prophylaxis. He is given SIRENA stockings, SCDs, and Xarelto for DVT prophylaxis. Vital signs monitored during his hospital stay remained stable. Not requiring blood transfusions. There are no complications. By postoperative day 1 he was tolerating a regular diet, pain was controlled with oral pain medicine, and he was participating in physical therapy. On postop day 1 he was discharged home set up with home health services. He is given printed discharge instructions as well as new prescriptions for extra strength Tylenol, Xarelto, and tramadol. Continue physical therapy. He is weightbearing as tolerated. Continue SIRENA stockings. Follow-up proximately 2 weeks postop or sooner if there are any problems or concerns. Coding Level of Care Code None Diagnoses Right knee DJD M17.11
== END 2020-03-05 14:53 | disposition home health service (06) ==
LOC: ASU 05:39 → 3E 05:39